=== PATIENT | male | born 1940 | race Hispanic/Latino ===

== ENCOUNTER 2018-04-18 11:47 | Outpatient (CLI) | payer MEDICARE ==
--- NOTE | 2018-04-18 14:26 | Cat Scan Report ---
CT CHEST WITHOUT CONTRAST: HISTORY: Abnormal chest x-ray. COMPARISON: 09/24/16. TECHNIQUE: Helical CT in 1.25mm intervals without IV contrast. Sagittal and coronal reformatted images. FINDINGS: Thyroid gland: Normal. Tracheobronchial tree: Normal. Esophagus: Normal. Heart: Normal. Pericardium: Normal. Mediastinum: No mass or adenopathy has developed. Lung Turcios: Well-aerated. No parenchymal lung disease is appreciated. Pleural Spaces: Partially calcified focal pleural plaques in both lungs are stable in size and number. No pleural effusion or pneumothorax. Musculoskeletal: Intact. Mild thoracic spondylosis is stable. No fracture or suspicious bony lesion. IMPRESSION: No change since 09/24/16. 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
== END 2018-04-18 11:48 | disposition home or self-care (01) ==
LOC: CT 11:47
PROVIDERS: ATTEND Internal Medicine
DX: R93.8 Abnormal findings on diagnostic imaging of other specified body structures (principal); I10 Essential (primary) hypertension; E11.9 Type 2 diabetes mellitus without complications; J44.9 Chronic obstructive pulmonary disease, unspecified; Z87.891 Personal history of nicotine dependence; Z91.041 Radiographic dye allergy status
CPT/HCPCS: 71250